=== PATIENT | female | born 2000 | race Caucasian/White ===

== ENCOUNTER 2021-12-12 13:09 | Emergency (ER) | payer MEDICAID ==
[~2021-12-12] VITALS: Ht 165.1 cm; Wt 65.8 kg
[2021-12-12 13:37] VITALS: BP 120/84
[2021-12-12 15:06] VITALS: BP 120/84
== END 2021-12-12 15:30 | disposition home or self-care (01) ==
LOC: MED 13:09
DX: S01.85XD Open bite of other part of head, subsequent encounter (principal); Z48.00 Encounter for change or removal of nonsurgical wound dressing; W54.0XXD Bitten by dog, subsequent encounter
CPT/HCPCS: 99281

== ENCOUNTER 2021-12-15 08:23 | Emergency (ER) | payer MEDICAID ==
[~2021-12-15] VITALS: Ht 165.1 cm; Wt 65.3 kg
[2021-12-15 08:29] VITALS: BP 126/79
--- NOTE | 2021-12-15 08:32 | NUR ---
PT AMBULATED WITH STEADY GAIT TO THE [facility]
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
--- NOTE | 2021-12-15 09:40 | NUR ---
SEEN BY DR GOODWIN IN TRIAGE
[2021-12-15 09:46] VITALS: BP 126/79
--- NOTE | 2021-12-15 09:47 | NUR ---
Patient discharged with v/s stable. Written and verbal after care instructions given and explained. Patient verbalized understanding. Ambulatory with steady gait. All questions addressed prior to discharge. Advised to follow up with PMD.
== END 2021-12-15 09:47 | disposition home or self-care (01) ==
LOC: MED 08:23
DX: S01.152D Open bite of left eyelid and periocular area, subsequent encounter (principal); W54.0XXD Bitten by dog, subsequent encounter
CPT/HCPCS: 99281